=== PATIENT | male | born 1990 | race Asian ===

== ENCOUNTER 2017-10-23 15:01 | Emergency (ER) | payer OTHER ==
[~2017-10-23] VITALS: Ht 170.2 cm; Wt 71.7 kg
[2017-10-23 15:00] VITALS: BP 148/85; TEMP 97.7
== END 2017-10-23 15:30 | disposition home or self-care (01) ==
LOC: ED 15:01
DX: K02.9 Dental caries, unspecified (principal); R68.84 Jaw pain
CPT/HCPCS: 99281